=== PATIENT | female | born 1990 | race Caucasian/White ===

== ENCOUNTER 2019-10-18 10:36 | Emergency (ER) | payer SELFPAY ==
[~2019-10-18] VITALS: Ht 170.2 cm; Wt 48.5 kg
--- NOTE | 2019-10-18 10:40 | NUR ---
ED Nurse Note: Pt ambulated to ED d/t flu-like symptoms, headache and sorethroat x 3 days. placed on bed.
--- NOTE | 2019-10-18 11:07 | NUR ---
ED Nurse Note: Dr. Recinos on bedside.
[2019-10-18 11:11] VITALS: BP 105/65
--- NOTE | 2019-10-18 11:13 | Emergency Room Report ---
History of Present Illness General Chief Complaint: Flu Like Symptoms Source: Patient Present Illness HPI Patient is a 29-year-old female presents after increased sore throat. Patient reports having increased discomfort with swallowing for approximately 2 days. Reports having some increased generalized body aches. Denies any vomiting or diarrhea. Denies any cough. She does report vaping. Denies any difficulty with breathing. Moderate headache. Allergies: Coded Allergies: No Known Allergies (Unverified , 10/18/19) Patient History Past Medical History: see triage record Last Menstrual Period: 10/10/19 Now: No : 0 Para: 0 Reviewed Nursing Documentation: PMH: Agreed; PSxH: Agreed Nursing Documentation-PMH Past Medical History: No Stated History Review of Systems All Other Systems: negative except mentioned in HPI Physical Exam Vital Signs Date Time Temp Pulse Resp B/P (MAP) Pulse Ox O2 Delivery O2 Flow Rate FiO2 10/18/19 10:44 99.9 85 18 105/65 (78) 98 Room Air Sp02 EP Interpretation: reviewed, normal General Appearance: normal inspection, well appearing, no apparent distress, alert, GCS 15 Head: atraumatic ENT: normal ENT inspection, hearing grossly normal, normal voice, tonsillar swelling, tonsillar exudate Neck: normal inspection, full range of motion, supple, no bony tend Respiratory: normal inspection, lungs clear, normal breath sounds, no respiratory distress, no retraction, no wheezing Cardiovascular #1: regular rate, rhythm, no edema Gastrointestinal: normal inspection, normal bowel sounds, non tender, soft, no guarding, no hernia Genitourinary: no CVA tenderness Musculoskeletal: normal inspection, back normal, normal range of motion Neurologic: alert, motor strength/tone normal, line rider III-XII nml as tested, oriented x3, responsive, speech normal, normal inspection Psychiatric: normal inspection, judgement/insight normal, mood/affect normal Medical Decision Making Diagnostic Impression: Primary Impression: Exudative pharyngitis ER Course Patient present for tonsillar swelling. Differential diagnosis included but was not limited to meningitis, exudative tonsillitis, retropharyngeal abscess, epiglottitis, strep pharyngitis. Patient appears to have some evidence of exudative tonsillitis and has some tender lymphadenopathy in the left side of her neck. Patient will be treated empirically with antibiotics. She is given prescription for ibuprofen. Advised to follow-up with her primary care physician for recheck. The patient is advised to follow up with primary care doctor in 1-2 days. Patient is advised to return if any worsening condition or if any changes in status that are concerning. This report is dictated with Dr. TATTO[employer] missile and missile checkout technician software which may occasionally lead to discrepancies related to use of this software. Last Vital Signs Date Time Temp Pulse Resp B/P (MAP) Pulse Ox O2 Delivery O2 Flow Rate FiO2 10/18/19 10:44 99.9 85 18 105/65 (78) 98 Room Air Status: improved Disposition: HOME, SELF-CARE Condition: Stable Scripts Azithromycin* (ZITHROMAX*) 250 Mg Tablet 250 MG ORAL DAILY, #6 TAB 0 Refills Take two tables once daily for 1 day, then one tablet once daily for 4 days. Prov: Spike Recinos MD 10/18/19 Ibuprofen* (MOTRIN*) 400 Mg Tablet 400 MG ORAL Q8H, #30 TAB 0 Refills Prov: Spike Recinos MD 10/18/19 Spike Recinos MD Oct 18, 2019 11:13
[2019-10-18] MEDS ORDERED: ZITHROMAX250 MG ORAL (11:18)
[2019-10-18] MEDS ORDERED: IBUPROFEN400 MG ORAL (11:18)
[2019-10-18 11:26] VITALS: BP 110/72
--- NOTE | 2019-10-18 11:26 | NUR ---
ER DISCHARGE NOTE: Pt is cleared to be discharged per ERMD, pt is AOx4, VSS, on RA. pt was given dc and prescription instructions, pt was able to verbalize understanding, pt id band removed. pt is able to ambulate with steady gait. pt took all belongings.
== END 2019-10-18 11:26 | disposition home or self-care (01) ==
LOC: EMR 11:15
DX: J02.9 Acute pharyngitis, unspecified (principal)
CPT/HCPCS: 99282

== ENCOUNTER 2019-10-20 10:10 | Emergency (ER) | payer SELFPAY ==
[~2019-10-20] VITALS: Ht 170.2 cm; Wt 48.5 kg
[~2019-10-20 10:10] MED LIST: IBUPROFEN400 MG ORAL; ZITHROMAX250 MG ORAL
--- NOTE | 2019-10-20 10:28 | NUR ---
ED Nurse Note: Pt ambulated to ED d/t tonsilitis x 5 days. Pt came in to ER two days ago and pt started on ATB but pain is getting worse. Pt is AOx4, VSS, on RA, NAD. Placed on bed.
[2019-10-20 10:30] VITALS: BP 99/62
--- NOTE | 2019-10-20 10:43 | NUR ---
ED Nurse Note: ERMD on bedside.
[2019-10-20] MEDS ORDERED: AUGMENTIN 875-1 EAC1 ORAL (10:49)
--- NOTE | 2019-10-20 10:55 | Emergency Room Report ---
History of Present Illness General Chief Complaint: Sore Throat Source: Patient Present Illness HPI Patient is a 29-year-old female who presents after increased throat discomfort. Patient had recently been seen at this emergency department by me. She had worsening pain to the throat after several days. Reports having some increased welling to the right side of her tonsils. Denies any vomiting. Reports having continued white discoloration to the right tonsil. Persistent pain with swallowing. Reports having subjective fever and chills. Nonproductive cough. Allergies: Coded Allergies: No Known Allergies (Unverified , 10/18/19) Patient History Past Medical History: see triage record Last Menstrual Period: 10/05/19 Now: No Reviewed Nursing Documentation: PMH: Agreed; PSxH: Agreed Nursing Documentation-PMH Past Medical History: No Stated History Review of Systems All Other Systems: negative except mentioned in HPI Physical Exam Vital Signs Date Time Temp Pulse Resp B/P (MAP) Pulse Ox O2 Delivery O2 Flow Rate FiO2 10/20/19 10:23 99.3 83 19 99/62 (74) 100 Room Air General Appearance: well appearing, no apparent distress, alert, GCS 15 Head: normocephalic, atraumatic ENT: hearing grossly normal, normal voice, TMs + canals normal, uvula midline, tonsillar exudate - Right-sided tonsillar exudate and enlargement, no uvular deviation Neck: full range of motion, supple Respiratory: no respiratory distress, speaking full sentences Cardiovascular #1: normal inspection, regular rate, rhythm Gastrointestinal: normal inspection Musculoskeletal: normal inspection, no calf tenderness Neurologic: alert, motor strength/tone normal, manager er III-XII nml as tested, oriented x3, normal gait Psychiatric: mood/affect normal Skin: normal inspection, normal color, no rash Medical Decision Making Diagnostic Impression: Primary Impression: Tonsillitis ER Course Patient presented for sore throat. Differential diagnosis included but was not limited to meningitis, exudative tonsillitis, retropharyngeal abscess, epiglottitis, strep pharyngitis. Patient tonsils are asymmetrically swollen but there is no evident abscess at this time. Throat culture was ordered. Patient does not appear to have any respiratory distress or evidence of abscess. Patient stable for outpatient management. Patient will be given prescription for Augmentin. She advised to continue salt water gargling as well as to follow-up for recheck in 2 days. The patient is advised to follow up with primary care doctor in 2 days. Patient is advised to return if any worsening condition or if any changes in status that are concerning. This report is dictated with [employer] double end chucking machine operator software which may occasionally lead to discrepancies related to use of this software. Last Vital Signs Date Time Temp Pulse Resp B/P (MAP) Pulse Ox O2 Delivery O2 Flow Rate FiO2 10/20/19 10:30 99.3 68 19 99/62 100 Room Air Status: improved Disposition: HOME, SELF-CARE Condition: Stable Scripts Amoxicillin/Potassium Clav 875-125* (AUGMENTIN 875-125 TABLET*) 1 Each Tablet 1 TAB ORAL TWICE A DAY, #14 TAB Prov: Spike Recinos MD 10/20/19 Patient Instructions: Tonsillitis Spike Recinos MD Oct 20, 2019 10:55
[2019-10-20 11:00] VITALS: BP 99/62
[2019-10-20] MEDS ORDERED: Lidocaine 2% Visc 15ml soln ORAL ONE (11:00)
--- NOTE | 2019-10-20 11:00 | NUR ---
ER DISCHARGE NOTE: Pt is cleared to be discharged per ERMD. Pt is AOx4, VSS, on RA. pt was given dc and prescription instructions, pt was able to verbalize understanding, pt id band removed. pt is able to ambulate with steady gait. pt took all belongings.
== END 2019-10-20 11:00 | disposition home or self-care (01) ==
LOC: EMR 10:50
DX: J03.90 Acute tonsillitis, unspecified (principal)
CPT/HCPCS: 86710; 87070; 99282